=== PATIENT | male | born 1970 | race Caucasian/White ===

== ENCOUNTER 2025-03-07 09:08 | Emergency (ER) | payer MEDICAID ==
[~2025-03-07] VITALS: Ht 170.2 cm; Wt 100.0 kg
[2025-03-07 09:25] VITALS: TEMP 98.1
[2025-03-07 09:40] VITALS: BP 113/68; PULSE 76; RESP 18; O2SAT 99
[2025-03-07] MEDS: CEPHALEXIN MONOHYDRATE 500 MG CAPSULE PO ONE (10:32)
[2025-03-07] MEDS: IBUPROFEN 600 MG TABLET PO ONE (10:39)
[2025-03-07] MEDS: SULFAMETHOX/TRIMETH DS 800-160 MG/TABLET PO ONE (10:39)
[2025-03-07] MEDS ORDERED: SULF1TAB94 PO (10:44)
[2025-03-07] MEDS ORDERED: CEPH-558 PO (10:44)
== END 2025-03-07 11:41 | disposition home or self-care (01) ==
LOC: EMS 09:08
DX: L02.411 Cutaneous abscess of right axilla (principal)
CPT/HCPCS: 10060; 99284; Z7502; Z7610